=== PATIENT | female | born 1960 | race African-American/Black ===

== ENCOUNTER 2017-02-27 10:39 | Emergency (ER) | payer MEDICAID, OTHER ==
[~2017-02-27] VITALS: Ht 167.6 cm; Wt 107.0 kg
[2017-02-27] MEDS ORDERED: KETOROLAC 60MG/2ML VIAL IM ONE (11:45)
[2017-02-27 12:17] VITALS: BP 142/70
== END 2017-02-27 13:20 | disposition home or self-care (01) ==
LOC: ER 12:37
DX: M77.9 Enthesopathy, unspecified (principal)
CPT/HCPCS: 96372; 99283; J1885

== ENCOUNTER 2018-12-03 20:23 | Emergency (ER) | payer MEDICAID ==
[~2018-12-03] VITALS: Ht 162.6 cm; Wt 100.0 kg
[~2018-12-03 20:23] MED LIST: ABIL5 PO; ALLO300T2 PO; AMIT100T2 PO; ATOR20TA65 PO; NAPR-681 PO; PRIM50TA31 PO; SERT-112 PO
[2018-12-04] MEDS ORDERED: HYDROCODONE/ACETAMINOPHEN 5/325MG TABLET PO STA (01:57)
[2018-12-04] MEDS ORDERED: KETOROLAC 60MG/2ML VIAL IM STA (01:57)
[2018-12-04 02:39] LABS: CLARITY URINE CLEAR (CLEAR); COLOR URINE YELLOW (YELLOW); KETONES URINE NEGATIVE (NEGATIVE); LEUKOCYTE ESTERASE URINE NEGATIVE (NEGATIVE); NITRITE URINE NEGATIVE (NEGATIVE); OCCULT BLOOD URINE NEGATIVE (NEGATIVE); PROTEIN URINE NEGATIVE (NEGATIVE); SPECIFIC GRAVITY URINE 1.015 (1.005-1.030); UROBILINOGEN URINE 0.2 E.U./dL (0.2-1.0)
[2018-12-04 03:32] VITALS: BP 146/79
== END 2018-12-04 03:33 | disposition home or self-care (01) ==
LOC: ER 20:23
DX: M54.40 Lumbago with sciatica, unspecified side (principal)
CPT/HCPCS: 81003; 96372; 99283; J1885